=== PATIENT | female | born 1980 | race African-American/Black ===

== ENCOUNTER → 2016-12-15 | Outpatient (CLI) | payer OTHER ==
--- NOTE | ~2016-12-15 | TH ---
Unit #: [id number] #: [id number] Patient: MAMI SANABRIA [id number] [address] [address] [id number] O MR#: [id number] NAME: MAMI SANABRIA : 1980 SEX: F STUDY DATE/TIME: 12/15/2016 UNIT: CN ROOM: STUDY DESCRIPTION: Imaging Study Attending Physician: Laura Sheets M.D. Referring Physician: Laura Sheets M.D. Primary Care Physician: Laura Sheets M.D. CARDIOLOGY REPORT EXAM Nuclear stress test INDICATION Chest discomfort. SUMMARY Patient underwent nuclear stress test. Patient received a resting dose of 10.75 mCi and a stress dose of 34.1 mCi. On gated imaging patient appears to have normal wall motion with a preserved ejection fraction. The patient's LVEF is 63%. On perfusion imaging, comparing rest and stress imaging there appear to be no reversible perfusion defects. CONCLUSION 1. No obvious ischemia. 2. Preserved ejection fraction. 3. ECG portion to be dictated separately. Dictated by... Femi Garcia M.D. [place] TD: 12/15/2016 22:57 JOB #: [id number] CARDIOLOGY REPORT X FEMI GARCIA MD CARDIOLOGY REPORT
== END | disposition home or self-care (01) ==
LOC: CNUC 07:29
DX: R07.9 Chest pain, unspecified (principal); I10 Essential (primary) hypertension; E11.9 Type 2 diabetes mellitus without complications
CPT/HCPCS: 78452; 93017; A9500

== ENCOUNTER 2017-04-14 14:46 | Emergency (ER) | payer OTHER | END 2017-04-14 15:30 | disposition home or self-care (01) | LOC: CFTX 14:46 → CED 14:46 → CFTX 15:26 | DX: N60.02 Solitary cyst of left breast (principal); E11.9 Type 2 diabetes mellitus without complications; I10 Essential (primary) hypertension; Z88.2 Allergy status to sulfonamides; Z88.8 Allergy status to other drugs, medicaments and biological substances | CPT/HCPCS: 99283 ==

== ENCOUNTER → 2017-04-21 | Outpatient (CLI) | payer OTHER ==
--- NOTE | ~2017-04-21 | MY26 ---
[facility] A Service of [facility] RADIOLOGY TEXT RESULTS PATIENT: MAMI SANABRIA LOCATION: [facility] : [birth year] UNIT #: [id number] AGE: [address]: NAFISA GALICIA SEX: F ORDER DR: [id number] [facility] [address] [place], [place] [address] [id number] O MR#: [id number] Acc #: [id number] NAME: MAMI SANABRIA : 1980 SEX: F STUDY DATE/TIME: 04/21/2017 11:18 UNIT: [facility] ROOM: STUDY DESCRIPTION: [facility] DIAGNOSTIC W/ CAD BILAT Attending Physician: Sara Vick Ordering Physician: Sara Vick Primary Care Physician: Arielle Weber M.D. MEDICAL IMAGING REPORT This report is preliminary unless electronic signature is present EXAM Diagnostic bilateral mammogram INDICATION Palpable lump left breast at 12 o'clock. No family history of breast cancer. Baseline study. FINDINGS MLO and CC digital views of each breast were obtained with spot compression in the left CC projection and a straight mediolateral view of the left breast. The breasts are almost entirely fatty replaced. There were no mass or abnormal calcifications. The study was viewed FDA-approved CAD device. Ultrasound of the palpable area shows a slightly hyperechoic area within a fat nodule measuring about 8 mm in diameter suggesting fat necrosis, and there is another 4 mm similar area nearby. There is also a tiny cyst measuring up 2.5 mm in diameter. IMPRESSION There is no mammographic evidence of malignancy or ultrasound evidence malignancy. The patient could be feeling an area of fat necrosis within some fat lobules. There is also a 2.5 mm simple cyst in the same area. to 1/2 mm simple cyst in the same area. Routine mammographic screening at age 40 is recommended with continued clinical follow up. Patients over the age of 40 are entered into a reminder system with target due date for the next mammogram. A result letter will also be sent to the patient. BIRADS: 2 Benign Finding [facility] A Service of [facility] RADIOLOGY TEXT RESULTS PATIENT: MAMI SANABRIA LOCATION: [facility] : 82 UNIT #: [id number] AGE: [address]: NAFISA GALICIA SEX: F ORDER DR: Dictated by... Yo Torres M.D. THIS IS AN ELECTRONICALLY VERIFIED REPORT Yo Torres M.D. at 04/22/2017 7:07 AM BRYAN/vincent TD: 04/21/2017 20:32 JOB #: [id number] MEDICAL IMAGING REPORT Page 1 of 1 COPY
--- NOTE | ~2017-04-21 | US24 ---
[facility] A Service of [facility] RADIOLOGY TEXT RESULTS PATIENT: MAMI SANABRIA LOCATION: [facility] : 82 UNIT #: [id number] AGE: [address]: NAFISA GALICIA SEX: F ORDER DR: [id number] [facility] [address] [place], [place] [address] [id number] O MR#: [id number] Acc #: [id number] NAME: MAMI SANABRIA : 1980 SEX: F STUDY DATE/TIME: 04/21/2017 11:41 UNIT: [facility] ROOM: STUDY DESCRIPTION: US Breast Unilateral Attending Physician: Sara Vick Ordering Physician: Sara Vick Primary Care Physician: Arielle Weber M.D. MEDICAL IMAGING REPORT This report is preliminary unless electronic signature is present EXAM Left breast ultrasound INDICATIONS Palpable area 12 o'clock left breast. FINDINGS Ultrasound of the left breast at 4 o'clock shows an 8 mm hyperechoic area within a fat lobule just beneath the skin which is likely a fat necrosis. There is a similar 4 mm area in the adjacent tissue. There is also a 2.5 mm cyst. IMPRESSION Benign findings are identified on ultrasound suggesting fat necrosis and a tiny cyst. Routine mammographic screening at age 40 is recommended. BIRADS: 2 Benign Finding. Dictated by... Yo Torres M.D. THIS IS AN ELECTRONICALLY VERIFIED REPORT Yo Torres M.D. at 04/22/2017 7:07 AM FEL/pcl TD: 04/21/2017 20:32 JOB #: [id number] MEDICAL IMAGING REPORT Page 1 of 1 COPY
== END | disposition home or self-care (01) ==
LOC: CMAM 10:56
DX: N63 Unspecified lump in breast (principal); N60.01 Solitary cyst of right breast
CPT/HCPCS: 76641; G0204